=== PATIENT | female | born 1950 ===

== ENCOUNTER 2016-12-22 12:01 | Inpatient (IN) | payer MEDICAID, MEDICARE, OTHER ==
[2016-12-22 12:01] VITALS: BMI 35.4
[2016-12-22] MEDS ORDERED: Albuterol-Ipratrop 3 mg / 0.5 (3 ml) UD INH STA (12:28)
[2016-12-22] MEDS ORDERED: Albuterol-Ipratrop 3 mg / 0.5 (3 ml) UD ONE (12:33)
--- NOTE | 2016-12-22 12:37 | RAD ---
HISTORY: Cough, SOB, CP COMPARISON: No prior. FINDINGS: LUNGS: No active pulmonary disease. PLEURA: No significant pleural effusion identified, no pneumothorax apparent. CARDIOVASCULAR: Prominent cardiac silhouette again seen. No pulmonary vascular derangement appreciable. OSSEOUS STRUCTURES: No significant abnormalities. VISUALIZED UPPER ABDOMEN: Surgical clips again seen the right upper quadrant abdomen. OTHER FINDINGS: None. IMPRESSION: No acute cardiopulmonary is appreciated in the interval. Prominent but stable appearing cardiac silhouette again identified.
[2016-12-22 13:01] LABS: BASO % 0.4 % (0.0-2.0); EOS # 0.1 K/uL (0.0-0.7); EOS % 1.2 % (0.0-4.0); HEMATOCRIT 34.5 % (34.0-47.0); LYMPH # 1.4 K/uL (1.0-4.3); LYMPH % 17.6 % (20.0-40.0); MEAN CELL VOLUME 94.8 fl (81.0-99.0); MEAN CORPUSCULAR HEMOGLOBIN 31.7 pg (27.0-31.0); MEAN CORPUSCULAR HGB CONC 33.4 g/dL (33.0-37.0); MEAN PLATELET VOLUME 8.3 fl (7.2-11.7); MONO # 0.4 K/uL (0.0-0.8); MONO % 4.9 % (0.0-10.0); NEUT # 6.1 K/uL (1.8-7.0); NEUT % 75.9 % (50.0-75.0); NRBC % 0.1 % (0.0-0.0); RED CELL DISTRIBUTION WIDTH 14.4 % (11.5-14.5)
--- NOTE | 2016-12-22 13:05 | ED PDOC ---
HPI: Chest Pain Time Seen by Provider: 12/22/16 12:17 Chief Complaint (Nursing): Chest Pain Chief Complaint (Provider): asthma, chest pain, and cough History Per: Patient History/Exam Limitations: no limitations Onset/Duration Of Symptoms: Days ("a month", asthma. ) Current Symptoms Are (Timing): Still Present Severity: Mild Quality: "Pain" Additional History Per: Patient Additional Complaint(s): 66 y/o female, Hx of asthma and diabetes, c/o asthma "for a month", non- radiating left sided chest pain and cough with clear sputum since this morning. Patient was recently seen by her PMD a few days prior and was given a shot ( does not remember) for her asthma, but with no relief. Denies fever, chills, or abdominal pain. No palpitations, diaphoresis, or light headedness. Past Medical History Reviewed: Historical Data, Nursing Documentation, Vital Signs Vital Signs: Last Vital Signs Temp 96.7 F L 12/25/16 13:00 Pulse 113 H 12/25/16 13:00 Resp 20 12/25/16 13:00 BP 125/74 12/25/16 13:00 Pulse Ox 98 12/25/16 13:00 - Medical History PMH: Asthma, Back Problems, Diabetes, HTN, Hypercholesterolemia Denies: CVA, HIV - Surgical History Surgical History: Cholecystectomy Denies: Pacemaker, - Family History Family History: States: Unknown Family Hx - Immunization History Hx Tetanus Toxoid Vaccination: No Hx Influenza Vaccination: No Hx Pneumococcal Vaccination: No - Home Medications Home Medications: Ambulatory Orders Medication Instructions Recorded Albuterol 0.083% [Albuterol 0.083% 3 ml IH Q6H PRN 12/22/16 Inhal Sharona (2.5 mg/3 ml) UD] Albuterol HFA [Ventolin HFA 90 2 puff IH Q4H PRN 12/22/16 mcg/actuation (8 g)] Insulin Aspart, Recombinant 10 unit SC AC 12/22/16 [Novolog] Insulin Glargine, Recombina 50 unit SC BID 12/22/16 [Lantus] Losartan [Cozaar] 100 mg PO DAILY 12/22/16 MetFORMIN [glucoPHAGE] 1,000 mg PO BID 12/22/16 Montelukast [Singulair] 10 mg PO HS 12/22/16 Omeprazole 20 mg PO DAILY 12/22/16 Oxycodone HCl/Acetaminophen 1 tab PO Q6H PRN 12/22/16 [Percocet 10-325 mg Tablet] Promethazine [Phenergan Syrup] 5 ml PO Q6H PRN 12/22/16 Simvastatin 10 mg PO DAILY 12/22/16 Zolpidem [Ambien] 10 mg PO HS 12/22/16 Lactobacillus Acidophilus [Bacid 1 cap PO BID #14 cap 12/25/16 Acidophilus] Methylprednisolone [Medrol Dose 4 mg PO DAILY #21 mg 12/25/16 Pack (21 tabs)] levoFLOXacin [Levaquin] 500 mg PO DAILY #7 tab 12/25/16 - Allergies Allergies/Adverse Reactions: Allergies Allergy/AdvReac Type Severity Reaction Status Date / Time No Known Allergies Allergy Verified 01/16/16 14:45 Review of Systems ROS Statement: Except As Marked, All Systems Reviewed And Found Negative Constitutional: Negative for: Fever, Chills, Sweats Cardiovascular: Positive for: Chest Pain (left sided). Negative for: Palpitations, Light Headedness Respiratory: Positive for: Cough (with clear sputum), Shortness of Breath ( Asthma) Gastrointestinal: Negative for: Abdominal Pain Physical Exam - Reviewed Nursing Documentation Reviewed: Yes Vital Signs Reviewed: Yes - Physical Exam Appears: Positive for: Well, Non-toxic, No Acute Distress Head Exam: Positive for: ATRAUMATIC, NORMAL INSPECTION, NORMOCEPHALIC Skin: Positive for: Normal Color, Warm, Dry Eye Exam: Positive for: Normal appearance Cardiovascular/Chest: Positive for: Regular Rate, Rhythm Respiratory: Positive for: Normal Breath Sounds, Other (Speaking in full sentences). Negative for: Rales, Rhonchi, Wheezing Gastrointestinal/Abdominal: Positive for: Soft. Negative for: Tenderness Neurologic/Psych: Positive for: Alert, Oriented - Laboratory Results Result Diagrams: 12/22/16 12:30 12/22/16 12:30 - ECG O2 Sat by Pulse Oximetry: 100 (RA/Nebulizer treatment) Pulse Ox Interpretation: Normal Medical Decision Making Medical Decision Making: Initial Impression: * Asthma "for a month", left sided chest pain and cough with sputum since this morning. Initial Plan: * EKG * Blood work up * Duoneb treatment * Chest x-ray * UA Time: 13:00 Asthma vs Chest pain Time: 1235 --CXR FINDINGS: LUNGS: No active pulmonary disease. PLEURA: No significant pleural effusion identified, no pneumothorax apparent. CARDIOVASCULAR: Prominent cardiac silhouette again seen. No pulmonary vascular derangement appreciable. OSSEOUS STRUCTURES: No significant abnormalities. VISUALIZED UPPER ABDOMEN: Surgical clips again seen the right upper quadrant abdomen. OTHER FINDINGS: None. IMPRESSION: No acute cardiopulmonary is appreciated in the interval. Prominent but stable appearing cardiac silhouette again identified. Time: 1543 --CT chest FINDINGS: PULMONARY ARTERIES: Unremarkable. No pulmonary embolism. AORTA: No acute findings. No thoracic aortic aneurysm. LUNGS: Multiple subpleural nodules none larger than 2 mm. PLEURAL SPACES: Unremarkable. No effusion or pneuomothorax. HEART: Unremarkable. No cardiomegaly. No significant pericardial effusion. LYMPH NODES: No lymphadenopathy. BONES, CHEST WALL: Unremarkable. No fracture or destructive lesion OTHER FINDINGS: Unremarkable. IMPRESSION: Unremarkable CT pulmonary angiogram. No pulmonary embolus. Additional benign and/or incidental findings described above. Time: 1600 --Discussed case with Dr. Champion. Agreed with plans for OBS/Tele admission. Scribe Attestation Documented by Natasha yung acting as a scribe for Dottie King MD. Provider Attestation: All medical record entries made by the Scribe were at my direction and personally dictated by me. I have reviewed the chart and agree that the record accurately reflects my personal performance of the history, physical exam, medical decision making, and the department course for this patient. I have also personally directed, reviewed, and agree with the discharge instructions and disposition. Disposition - Clinical Impression Clinical Impression: Chest pain - Disposition Disposition Time: 16:10 Condition: STABLE - Pt Status Changed To: Hospital Disposition Of: Observation - POA Present On Arrival: None
[2016-12-22 13:13] LABS: ALB/GLOB RATIO 1.1 (1.0-2.1); ALKALINE PHOSPHATASE 69 U/L (38-126); ALT/SGPT 37 U/L (9-52); AST/SGOT 20 U/L (14-36); BILIRUBIN,TOTAL 1.7 mg/dl (0.2-1.3); BLOOD UREA NITROGEN 24 mg/dl (7-17); CARBON DIOXIDE 25 mmol/L (22-30); CHLORIDE 109 mmol/L (98-107); GFR AFRICAN-AMERICAN > 60; GLUCOSE,RANDOM 91 mg/dL (65-105); POTASSIUM 3.8 MMOL/L (3.6-5.0); SODIUM 142 mmol/l (132-148); TOTAL PROTEIN 6.5 G/DL (6.3-8.2)
[2016-12-22 13:30] LABS: PARTIAL THROMBOPLASTIN TIME 22.9 Seconds (25.6-37.1)
[2016-12-22] MEDS ORDERED: Sodium Chloride 0.9% 50 ML IV ONE (14:03)
[2016-12-22] MEDS ORDERED: Iodixanol 320 MG/ML 100 ML BOTTLE IV ONE (14:03)
[2016-12-22 15:06] LABS: URINE BACTERIA RARE (<OCC); URINE BILIRUBIN NEGATIVE (NEGATIVE); URINE BLOOD MODERATE (NEGATIVE); URINE COLOR YELLOW (YELLOW); URINE GLUCOSE (UA) NEG (Normal); URINE KETONE NEGATIVE (NEGATIVE); URINE LEUKOCYTE ESTERASE NEG Leu/uL (Negative); URINE PROTEIN NEGATIVE (NEGATIVE); URINE UROBILINOGEN 0.2-1.0 mg/dL (0.2-1.0)
[2016-12-22 15:07] LABS: RBC URINE 18 /hpf (0-3); WBC URINE 3 /hpf (0-5)
--- NOTE | 2016-12-22 15:45 | CT ---
PROCEDURE: CT Chest with contrast (Pulmonary Angiogram) HISTORY: SOB, CP COMPARISON: None available. TECHNIQUE: Axial computed tomography images were obtained of the chest in the pulmonary arterial phase of enhancement. Coronal and sagittal reformatted images were created and reviewed. Maximum intensity projection (MIP) reconstructed images in the following planes: Axial projection only Intravenous contrast dose: 90 cc Visipaque 320 Mean Hounsfield unit values in the main pulmonary artery: 288.38 Radiation dose: Total exam DLP = 4-3.01 mGy-cm. This CT exam was performed using one or more of the following dose reduction techniques: Automated exposure control, adjustment of the mA and/or kV according to patient size, and/or use of iterative reconstruction technique. FINDINGS: PULMONARY ARTERIES: Unremarkable. No pulmonary embolism. AORTA: No acute findings. No thoracic aortic aneurysm. LUNGS: Multiple subpleural nodules none larger than 2 mm. PLEURAL SPACES: Unremarkable. No effusion or pneuomothorax. HEART: Unremarkable. No cardiomegaly. No significant pericardial effusion. LYMPH NODES: No lymphadenopathy. BONES, CHEST WALL: Unremarkable. No fracture or destructive lesion OTHER FINDINGS: Unremarkable. IMPRESSION: Unremarkable CT pulmonary angiogram. No pulmonary embolus. Additional benign and/or incidental findings described above.
[2016-12-22] MEDS ORDERED: Patient's Own Med (Oxycodone Hcl/Acetaminophen [Percocet 10-325 Mg Tablet] 1 TAB) PO PRN (19:56)
[2016-12-22] MEDS: Insulin Detemir 100 Units/ml Inj SC SCH (21:44)
[2016-12-22] MEDS: Promethazine 6.25 MG/5 ML CUP PO PRN (21:45)
[2016-12-23] MEDS: Insulin Lispro (humaLOG) 100 Units/ml Inj SC SCH ×7 (07:13→21:18)
[2016-12-23] MEDS ORDERED: INSULIN ASPART RECOMBINANT 10 UNIT SC SCH (07:30)
[2016-12-23] MEDS: Insulin Detemir 100 Units/ml Inj SC SCH ×2 (08:14→21:18)
--- NOTE | 2016-12-23 08:40 | CARD ---
APPROVED REPORT EKG Measurement Heart [id number] MD [id number] <Conclusion> Normal sinus rhythm Normal ECG
[2016-12-23] MEDS ORDERED: Oxycodone/Acetaminophen 5/325 mg Tab PO PRN (08:50)
[2016-12-23] MEDS: Pantoprazole 20 mg EC Tab PO SCH (09:05)
[2016-12-23] MEDS: Pravastatin Sodium 20 MG TAB PO SCH (10:06)
[2016-12-23] MEDS: Enoxaparin 40 mg Syringe SC SCH (10:30)
[2016-12-23] MEDS: Promethazine 6.25 MG/5 ML CUP PO PRN ×2 (16:24→22:46)
[2016-12-23] MEDS: Albuterol HFA 90 mcg/actuation (8 g) IH PRN ×2 (16:26→21:16)
[2016-12-23] MEDS: Albuterol 0.083% Inhal Sol (2.5 mg/3 mL) UD IH PRN (16:48)
--- NOTE | 2016-12-23 22:19 | CON ---
DATE: CARDIOLOGY CONSULT REASON FOR CONSULTATION: Chest pain. HISTORY OF PRESENT ILLNESS: The patient is 66 years old female who has a history of bronchial asthma, diabetes mellitus, presented because of chest pain, left-sided, associated with productive cough of clear sputum. The patient is unaware of any history of heart attack in the past. The patient stated she underwent stress test 2 months ago at [facility] and was negative; however, the available record to me is a negative stress test that was done in 08/2014. A more recent Myoview stress test in August of this year performed by Dr. Millan revealed no stress-induced perfusion defect and normal DEXA scan with normal ejection fraction. SOCIAL HISTORY: Nonsmoker, nondrinker. MEDICATIONS: Albuterol inhaler, Ambien 10 mg at bedtime, Cozaar 100 mg once a day, aspirin 81 mg once a day, metformin 1 g twice a day, Levemir 15 units subcutaneous twice a day, Lovenox 40 mg subcutaneous once a day, Pravachol 20 mg once a day, prednisone 10 mg once a day, Protonix 20 mg once a day, Singulair 10 mg at bedtime. REVIEW OF SYSTEMS: No nausea or vomiting. No fever or chills. No hemoptysis. No syncope. PHYSICAL EXAMINATION: GENERAL: The patient is an elderly female, who does not appear to be in any distress. VITAL SIGNS: Blood pressure 124/73, heart rate 67, temperature 97.9, respirations 18. HEENT: Normocephalic. NECK: No JVD. CHEST: Minimal rhonchi. HEART: S1 and S2, regular. ABDOMEN: Soft. EXTREMITIES: No edema. LABORATORY DATA: Hemoglobin and hematocrit 11.5 and 34.5, white count and platelet count are within normal limit. SMA-7: Sodium 142, potassium 3.8, chloride 109, CO2 of 25, glucose 91, BUN 24, creatinine 0.9. Two sets of troponin are negative. PTT 22.9. D-dimer is elevated 352. EKG revealed normal sinus rhythm. Chest CT angio unremarkable. No pulmonary embolism. ASSESSMENT: 1. Atypical chest pain, myocardial infarction is ruled out. 2. History of recent negative DEXA scan in August of this year. 3. Diabetes mellitus. 4. Chronic obstructive lung disease. CONDITIONS: Continue current bronchodilators, continue Cozaar 10 mg once a day, aspirin 81 mg once a day, Lovenox 40 mg subcutaneous once a day, prednisone 10 mg once a day, Pravachol 20 mg daily. Followup echo cardiac study performed today, which is unremarkable. The patient can be discharged to be followed by her chha Dr. Millan. Audie Broussard MD
--- NOTE | 2016-12-24 04:14 | HP ---
HISTORY OF PRESENT ILLNESS: The patient is a 66-year-old female with history of multiple medical problems, presented to emergency room with chest pain at rest. Pain was pressure like, retrosternal. The patient was evaluated in the emergency room and after cardiology consultation with Dr. Broussard, the patient was admitted for further management. The patient denied to have similar chest pain before. The patient's symptoms were not associated with any shortness of breath, palpitations, or any other cardiac symptoms. REVIEW OF SYSTEMS: Other review of systems is negative. ALLERGIES: NO KNOWN ALLERGIES. HOME MEDICATIONS: NovoLog 10 units once a day, DuoNeb by nebulizer every 6 hours as needed, prednisone 10 mg daily, simvastatin 10 mg daily, Singulair 10 mg daily, Ambien 10 mg daily, omeprazole 20 mg daily, metformin 1000 mg twice a day, and losartan 100 mg daily. PAST MEDICAL HISTORY: Hypertension, type 2 diabetes mellitus, hypercholesterolemia, obstructive lung disease, on steroids, and nebulizer treatment. SOCIAL HISTORY: No history of smoking, ETOH, or substance abuse. FAMILY HISTORY: Noncontributory. PHYSICAL EXAMINATION: GENERAL: The patient is in bed, comfortable, not in any cardiopulmonary distress at the time of this examination. VITAL SIGNS: Blood pressure 110/70, temperature 98.1, respiratory rate 14, and pulse 74. HEENT: Pupils equal and reactive to light. Normal-appearing mucosa of the conjunctivae, oropharynx, and nasal membrane mucosa. NECK: Supple. No JVD. No carotid bruits. No lymph node. No thyromegaly. CHEST AND LUNGS: Bilaterally symmetrical expansion. Good air exchange. No rales. No rhonchi. CARDIOVASCULAR: PMI not localized. S1 and S2. No additional sounds. ABDOMEN: Normoactive bowel sounds. No tenderness. No organomegaly. No masses. EXTREMITIES: No cyanosis. No clubbing. No edema. CENTRAL NERVOUS SYSTEM: Alert, awake, and oriented x3. No neurological deficits could be appreciated. ASSESSMENT: 1. Chest pain, rule out acute coronary syndrome. 2. Obstructive lung disease. 3. Hypertension. 4. Type 2 diabetes mellitus. PLAN: Cardiac enzymes every 8 hours x3. Cardiology consult and follow recommendations, echocardiogram, continue aspirin and statin. Resume the patient's home medications. [facility] MD Akira [facility] # [id number]
[2016-12-24] MEDS: Albuterol 0.083% Inhal Sol (2.5 mg/3 mL) UD IH PRN (04:59)
[2016-12-24] MEDS: Insulin Lispro (humaLOG) 100 Units/ml Inj SC SCH ×7 (06:35→21:39)
--- NOTE | 2016-12-24 09:08 | CARD ---
APPROVED REPORT EXAM: Two-dimensional and M-mode echocardiogram with Doppler and color Doppler. Other Information Quality : GoodRhythm : NSR INDICATION Chest Pain 2D DIMENSIONS IVSd1.07 (0.7-1.1cm)LVDd3.96 (3.9-5.9cm) LVOT Diameter1.78 (1.8-2.4cm)PWd0.95 (0.7-1.1cm) IVSs1.37 (0.8-1.2cm)LVDs2.78 (2.5-4.0cm) FS (%) 29.8 %PWs1.44 (0.8-1.2cm) M-Mode DIMENSIONS Left Atrium (MM)3.68 (2.5-4.0cm)IVSd1.47 (0.7-1.1cm) Aortic Root3.21 (2.2-3.7cm)LVDd4.44 (4.0-5.6cm) Aortic Cusp Exc.1.76 (1.5-2.0cm)PWd1.06 (0.7-1.1cm) IVSs1.47 cmFS (%) 30 % LVDs3.12 (2.0-3.8cm)PWs1.41 cm Mitral Valve MV E Gleiwvot34.6cm/sMV DECEL [id number] A Mzvbjrey90.5cm/s MV CJE46nuQ/A ratio0.8MVA (PHT)4.02cm2 TDI Lateral E' Peak V8.23cm/sMedial E' Peak V5.87cm/sE/Lateral E'5.5 E/Medial E'7.8 Pulmonary Valve PV Peak Kxihkxco30.1cm/s Tricuspid Valve TR Peak Fgpbsfsm588zt/sRAP [id number] Peak Gr.17mmHg [id number] LEFT VENTRICLE The left ventricle is normal size. There is normal left ventricular wall thickness. Left ventricle systolic function is normal. The Ejection Fraction is 60-65%. There is normal LV segmental wall motion. Transmitral Doppler flow pattern is Grade I-abnormal relaxation pattern. RIGHT VENTRICLE The right ventricle is normal size. There is normal right ventricular wall thickness. The right ventricular systolic function is normal. ATRIA The left atrium size is normal. The right atrium size is normal. AORTIC VALVE The aortic valve is normal in structure. There is trace aortic regurgitation. There is no aortic valvular stenosis. MITRAL VALVE The mitral valve is normal in structure. There is no evidence of mitral valve prolapse. There is no mitral valve stenosis. Mitral regurgitation is trace. TRICUSPID VALVE The tricuspid valve is normal in structure. There is trace tricuspid regurgitation. Right ventricular systolic pressure is estimated at 27 mmHg. There is no pulmonary hypertension. PULMONIC VALVE The pulmonary valve is normal in structure and function. There is no pulmonic valvular regurgitation. GREAT VESSELS The aortic root is normal in size. The IVC is normal in size and collapses >50% with inspiration. PERICARDIAL EFFUSION The pericardium appears normal. <Conclusion> The left ventricle is normal size. There is normal left ventricular wall thickness. There is normal LV segmental wall motion. Left ventricle systolic function is normal. The Ejection Fraction is 60-65%. Transmitral Doppler flow pattern is Grade I-abnormal relaxation pattern.
[2016-12-24] MEDS: Insulin Detemir 100 Units/ml Inj SC SCH ×2 (09:42→21:38)
[2016-12-24] MEDS: Enoxaparin 40 mg Syringe SC SCH (09:43)
[2016-12-24] MEDS: Promethazine 6.25 MG/5 ML CUP PO PRN ×3 (09:44→23:05)
[2016-12-24] MEDS: Pravastatin Sodium 20 MG TAB PO SCH (09:47)
[2016-12-24] MEDS: Pantoprazole 20 mg EC Tab PO SCH (09:47)
[2016-12-24] MEDS: levoFLOXacin 500 mg in D5W 500 MG/100 ML BAG IVPB SCH (14:00)
[2016-12-24] MEDS: methylPREDNISolone 40 MG in Sodium Chloride 0.9% 50 ML IV SCH ×2 (15:34→17:56)
[2016-12-24] MEDS: Albuterol 0.083% Inhal Sol (2.5 mg/3 mL) UD IH SCH ×3 (15:36→23:55)
--- NOTE | 2016-12-24 17:06 | PN ---
DATE: SUBJECTIVE: The patient is mildly short of breath and wheezing. She denies any chest pain. PHYSICAL EXAMINATION: VITAL SIGNS: Blood pressure 102/61, heart rate 81, temperature 97.9, respirations 18. HEENT: Normocephalic. CHEST: Bilateral scattered wheezing. HEART: S1 and S2, regular. EXTREMITIES: No edema. LABORATORY DATA: Today's blood sugar [address] angio, no pulmonary embolism. Echocardiographic study revealed normal left ventricular size, wall thickness, segmental wall motion, ejection fraction with grade 1 abnormal relaxation pattern. ASSESSMENT: 1. Atypical chest pain, myocardial infarction is ruled out. The patient has negative Lexiscan in August of this year. 2. Bronchospasm. RECOMMENDATIONS: Continue current albuterol inhaler. Continue Cozaar 10 mg once a day, aspirin 81 mg once a day and Levaquin at 500 mg intravenously daily. Continue subcutaneous Lovenox at 40 mg once a day. Case was discussed with Dr. Champion. No further cardiac workup is indicated. Audie Broussard MD
--- NOTE | 2016-12-24 19:00 | PN ---
DATE: 12/24/2016 SUBJECTIVE: The patient is seen today, 12/24/2016. She is in mild respiratory distress with wheezing. PHYSICAL EXAMINATION: VITAL SIGNS: Blood pressure is 100/66, temperature 98.3, respiratory rate 18, and pulse 73. HEENT: Pupils equal, reactive to light. Normal-appearing mucosa of the conjunctivae, oropharynx and nasal membrane mucosa. NECK: Supple. No JVD. No carotid bruit. No lymph node. No thyromegaly. CHEST AND LUNGS: Bilateral symmetrical expansion. Bilateral rhonchi scattered all over lung cruz. CARDIOVASCULAR SYSTEM: PMI not localized. S1 and S2. No additional sounds. ABDOMEN: Normoactive bowel sounds. No tenderness. No organomegaly. No masses. EXTREMITIES: No cyanosis. No clubbing. No edema. MEDICAL COORDINATOR PESTICIDE USE: Alert, awake, and oriented x3. No neurological deficit could be appreciated. ASSESSMENT: 1. Exacerbation of bronchial asthma. 2. Chest pain, likely musculoskeletal. 3. Hypertension. 4. Type II diabetes mellitus. 5. Hypercholesteremia. PLAN: We will start the patient on Levaquin as well as Solu-Medrol and DuoNeb by nebulizer every 6 hours. Continue Accu-Cheks and the patient is cleared from cardiac point of view by Dr. Broussard. Jesus MD Akira
[2016-12-25] MEDS: methylPREDNISolone 40 MG in Sodium Chloride 0.9% 50 ML IV SCH ×2 (00:25→09:15)
[2016-12-25] MEDS: Albuterol 0.083% Inhal Sol (2.5 mg/3 mL) UD IH SCH ×3 (04:03→11:31)
[2016-12-25] MEDS: Insulin Lispro (humaLOG) 100 Units/ml Inj SC SCH ×4 (06:55→11:58)
[2016-12-25 08:27] VITALS: RESP 20
[2016-12-25] MEDS: Enoxaparin 40 mg Syringe SC SCH (09:10)
[2016-12-25] MEDS: levoFLOXacin 500 mg in D5W 500 MG/100 ML BAG IVPB SCH (09:12)
[2016-12-25] MEDS: Pantoprazole 20 mg EC Tab PO SCH (09:14)
[2016-12-25] MEDS: Pravastatin Sodium 20 MG TAB PO SCH (09:14)
[2016-12-25] MEDS: Promethazine 6.25 MG/5 ML CUP PO PRN (09:14)
[2016-12-25] MEDS: Insulin Detemir 100 Units/ml Inj SC SCH (09:25)
[2016-12-25 12:25] VITALS: BP 125/74; PULSE 113; TEMP 96.7
--- NOTE | 2016-12-25 14:41 | PN ---
DATE: SUBJECTIVE: The patient's shortness of breath and wheezing has improved. PHYSICAL EXAMINATION VITAL SIGNS: Blood pressure of 125/74, heart rate of 115, temperature of 96.7, and respirations of 20. HEENT: Normocephalic. HEART: S1 and S2 regular. CHEST: Bilateral rhonchi. ABDOMEN: Soft. EXTREMITIES: No edema. LABORATORY DATA: Today's blood sugar of 273 and 267 respectively. ASSESSMENT: 1. Atypical chest pain, myocardial infarction is ruled out. 2. Chronic obstructive lung disease. 3. Uncontrolled diabetes mellitus. 4. Hypertension. CONDITION: Case was discussed with Dr. Champion and with UROLOGIC NURSE. Continue current IV Levaquin and IV Solu-Medrol. Continue Glucophage, Levemir, subcutaneous Lovenox, Pravachol, oral Protonix and Singulair. Discontinue aspirin. The patient can be discharged to be followed up by her primary new order clerk, Dr. Millan at his [place] office. Audie Broussard MD
[2016-12-25 15:58] VITALS: O2SAT 100
--- NOTE | 2016-12-26 06:40 | DS ---
REASON FOR ADMISSION: This is a 66-year-old female with history of multiple medical problems was admitted for chest tightness and wheezing. COURSE OF HOSPITALIZATION: The patient was admitted to telemetry floor and due to chest pressure, the patient had the cardiac workup done and consultation by Dr. Broussard. The patient's echocardiogram was normal and myocardial infarction was ruled out by negative cardiac enzymes. The patient was started also on IV steroid as well as nebulizer treatment for exacerbation of underlying bronchial asthma. The patient responded to treatment well and she was discharged with Medrol Dosepak as well as Levaquin 500 mg for another week and to continue her inhaled steroids as well as DuoNeb by nebulizer at home and follow with her primary care physician, Dr. Farrukh Rios. FINAL DIAGNOSES: 1. Chest pain, myocardial infarction is ruled out. 2. Exacerbation of bronchial asthma. 3. Hypertension. 4. Type 2 diabetes mellitus. [facility] MD Akira
== END 2016-12-25 14:16 | disposition home or self-care (01) | DRG 313 ==
LOC: H.ER 12:01 → H.ERHOLD 16:10 → H.TEL 18:15 → OBSVTOIN 12-23 17:39
PROVIDERS: ADMIT Internal Medicine; ATTEND Internal Medicine
DX: R07.89 Other chest pain (principal); J45.901 Unspecified asthma with (acute) exacerbation; J44.9 Chronic obstructive pulmonary disease, unspecified; E11.65 Type 2 diabetes mellitus with hyperglycemia; I10 Essential (primary) hypertension; E78.00 Pure hypercholesterolemia, unspecified

== ENCOUNTER 2017-12-23 18:29 | Inpatient (IN) | payer MEDICAID, MEDICARE, OTHER ==
[2017-12-23 18:29] VITALS: BMI 35.4
[2017-12-23 20:29] LABS: BASO # 0.1 K/uL (0.0-0.2); EOS # 0.1 K/uL (0.0-0.7); HEMOGLOBIN 12.2 g/dL (12.0-16.0); LYMPH # 4.1 K/uL (1.0-4.3); LYMPH % 33.7 % (20.0-40.0); MEAN CELL VOLUME 93.4 fl (81.0-99.0); MEAN CORPUSCULAR HEMOGLOBIN 31.5 pg (27.0-31.0); MEAN CORPUSCULAR HGB CONC 33.8 g/dL (33.0-37.0); MEAN PLATELET VOLUME 9.3 fl (7.2-11.7); MONO # 0.7 K/uL (0.0-0.8); NEUT # 7.1 K/uL (1.8-7.0); NEUT % 58.3 % (50.0-75.0); RBC 3.86 Mil/uL (3.80-5.20); RED CELL DISTRIBUTION WIDTH 15.2 % (11.5-14.5); WHITE BLOOD COUNT 12.2 K/uL (4.8-10.8)
[2017-12-23 20:39] LABS: ALB/GLOB RATIO 1.2 (1.0-2.1); ALBUMIN 3.9 g/dL (3.5-5.0); ALT/SGPT 30 U/L (9-52); AST/SGOT 22 U/L (14-36); BLOOD UREA NITROGEN 37 mg/dl (7-17); CALCIUM 9.5 mg/dL (8.4-10.2); GFR NON-AFRICAN AMERICAN 49; LIPASE 63 U/L (23-300)
--- NOTE | 2017-12-23 21:17 | ED PDOC ---
HPI: Abdomen Time Seen by Provider: 12/23/17 20:03 Chief Complaint (Nursing): Abdominal Pain Chief Complaint (Provider): Abdominal pain History Per: Patient History/Exam Limitations: no limitations Onset/Duration Of Symptoms: Hrs (1) Outside of [place] travel?: No Current Symptoms Are (Timing): Still Present Location Of Pain/Discomfort: Epigastric Quality Of Discomfort: Dull, Burning, "Pain" Additional History Per: Patient Additional Complaint(s): 67yo female, history of chronic back and hip pain, comes to ER with complaints of epigastric pain x 1 hr prior to arrival. Patient states she took her percocet for her chronic pain and afterwards, felt the burning epigastric pain. She states the pain radiates to her chest and describes it as a dull sensation. She reports associated nausea but deneis any vomiting, diarrhea, shortness of breath, dizziness, headache or rectal bleeding. She offers no additional medical complaints. PMD: Dr. Aleman Past Medical History Reviewed: Historical Data, Nursing Documentation, Vital Signs Vital Signs: Last Vital Signs Temp 98.4 F 12/25/17 16:09 Pulse 69 12/25/17 16:09 Resp 18 12/25/17 16:09 BP 119/82 12/25/17 16:09 Pulse Ox 97 12/25/17 16:09 - Medical History PMH: Asthma, Back Problems, Diabetes, HTN, Hypercholesterolemia Denies: CVA, HIV, Chronic Kidney Disease - Surgical History Surgical History: Cholecystectomy Denies: Pacemaker, - Family History Family History: States: No Known Family Hx - Immunization History Hx Tetanus Toxoid Vaccination: No Hx Influenza Vaccination: No Hx Pneumococcal Vaccination: No - Home Medications Home Medications: Ambulatory Orders Medication Instructions Recorded Albuterol 0.083% [Albuterol 0.083% 3 ml IH Q6H PRN 12/22/16 Inhal Sharona (2.5 mg/3 ml) UD] Albuterol HFA [Ventolin HFA 90 2 puff IH Q4H PRN 12/22/16 mcg/actuation (8 g)] Insulin Aspart, Recombinant 10 unit SC AC 12/22/16 [Novolog] Insulin Glargine, Recombina 50 unit SC BID 12/22/16 [Lantus] Losartan [Cozaar] 100 mg PO DAILY 12/22/16 MetFORMIN [glucoPHAGE] 1,000 mg PO BID 12/22/16 Montelukast [Singulair] 10 mg PO HS 12/22/16 Omeprazole 20 mg PO DAILY 12/22/16 Oxycodone HCl/Acetaminophen 1 tab PO Q6H PRN 12/22/16 [Percocet 10-325 mg Tablet] Simvastatin 10 mg PO DAILY 12/22/16 Zolpidem [Ambien] 10 mg PO HS 12/22/16 Lactobacillus Acidophilus [Bacid 1 cap PO BID #14 cap 12/25/16 Acidophilus] - Allergies Allergies/Adverse Reactions: Allergies Allergy/AdvReac Type Severity Reaction Status Date / Time No Known Allergies Allergy Verified 10/23/17 10:02 Review of Systems ROS Statement: Except As Marked, All Systems Reviewed And Found Negative Constitutional: Negative for: Fever, Chills Cardiovascular: Negative for: Chest Pain Respiratory: Negative for: Cough, Shortness of Breath Gastrointestinal: Positive for: Nausea, Abdominal Pain. Negative for: Vomiting Musculoskeletal: Positive for: Back Pain Neurological: Negative for: Weakness, Numbness Physical Exam - Reviewed Nursing Documentation Reviewed: Yes Vital Signs Reviewed: Yes - Physical Exam Appears: Positive for: Non-toxic, No Acute Distress, Uncomfortable Head Exam: Positive for: ATRAUMATIC, NORMAL INSPECTION, NORMOCEPHALIC Skin: Positive for: Normal Color, Warm, DRY Eye Exam: Positive for: EOMI, Normal appearance, PERRL Neck: Positive for: Normal, Painless ROM, Supple Cardiovascular/Chest: Positive for: Regular Rate, Rhythm Respiratory: Positive for: CNT, Normal Breath Sounds Pulses-Radial (L): 2+ Pulses-Radial (R): 2+ Gastrointestinal/Abdominal: Positive for: Soft, Tenderness (epigastric). Negative for: Mass, Distended, Guarding, Rebound, Hernia Back: Positive for: Normal Inspection. Negative for: L CVA Tenderness, R CVA Tenderness, Vertebral Tenderness Extremity: Positive for: Normal ROM. Negative for: Pedal Edema, Deformity Neurologic/Psych: Positive for: Alert, Oriented. Negative for: Motor/Sensory Deficits - Laboratory Results Result Diagrams: 12/24/17 08:54 12/24/17 08:54 - ECG O2 Sat by Pulse Oximetry: 98 (RA) Pulse Ox Interpretation: Normal Medical Decision Making Medical Decision Making: Impression: Abdominal pain Differential: Gastritis, pancreatitis, less likely biliary disease, ACS Plan: * Labs * KUB * CT Abdomen/Pelvis * Morphine 4mg IVP * Pepcid 20mg IVP * Zofran 4mg IVP 23:36 Abdomen/Pelvis CT FINDINGS: Lower thorax: No acute findings. ABDOMEN: Liver: There is a diffuse decrease in hepatic parenchymal density, consistent with fatty infiltration. Gallbladder and bile ducts: There has been a cholecystectomy. There is a mild, expected degree of intrahepatic and common bile duct dilation. Pancreas: The body and tail are atrophic. The pancreatic head and uncinate process are somewhat prominent with minimal haziness of the adjacent fat. Spleen: Normal. No splenomegaly. Adrenals: Normal. No mass. Kidneys and ureters: There are multiple simple renal cysts. Stomach and bowel: Normal. No obstruction. No mucosal thickening. Appendix: No evidence of appendicitis. PELVIS: Bladder: Unremarkable as visualized. Reproductive: Unremarkable as visualized. ABDOMEN and PELVIS: Intraperitoneal space: Normal. No free air. No significant fluid collection. Bones/joints: No acute fracture. No dislocation. Soft tissues: Unremarkable. Vasculature: Normal. No abdominal aortic aneurysm. Lymph nodes: Normal. No enlarged lymph nodes. IMPRESSION: Cholecystectomy with expected mild biliary ductal dilatation. Somewhat prominent pancreatic head and uncinate process with minimal haziness of the adjacent fat. Recommend correlation with amylase and lipase levels 23:45 -Discussed case with Dr. Champion and will admit patient due to concern for CT abdomen findings. Consult with Dr. Torres GI. Scribe Attestation: Documented by Doris Borges, acting as a scribe for Hany Almonte MD. Provider Scribe Attestation: All medical record entries made by the Scribe were at my direction and personally dictated by me. I have reviewed the chart and agree that the record accurately reflects my personal performance of the history, physical exam, medical decision making, and the department course for this patient. I have also personally directed, reviewed, and agree with the discharge instructions and disposition. Disposition - Clinical Impression Clinical Impression: Abdominal pain, Pancreatic abnormality - Patient ED Disposition Is Patient to be Admitted: Yes Discussed With : Lillie Champion Doctor Will See Patient In The: Hospital Counseled Patient/Family Regarding: Studies Performed, Diagnosis - Disposition Disposition Time: 23:50 Condition: FAIR - Pt Status Changed To: Hospital Disposition Of: Inpatient - Admit Certification Admit to Inpatient:: After my assessment, the patient will require hospitalization for at least two midnights. This is because of the severity of symptoms shown, intensity of services needed, and/or the medical risk in this patient being treated as an outpatient. - POA Present On Arrival: None
[2017-12-23] MEDS ORDERED: Morphine 4 MG/ML VIAL IVP ONE (21:19)
[2017-12-23] MEDS ORDERED: Morphine 4 MG/ML VIAL ONE ×2 (21:23→23:51)
[2017-12-23] MEDS ORDERED: Sodium Chloride 0.9% 50 ML IV ONE (22:39)
[2017-12-23] MEDS ORDERED: Iohexol 300 100 ML IJ ONE (22:39)
[2017-12-23] MEDS ORDERED: Iodixanol 320 MG/ML 100 ML BOTTLE IV ONE (22:44)
[2017-12-23] MEDS ORDERED: Sodium Chloride 0.9% 1,000 ML IV STA ×2 (23:43→23:44)
[2017-12-24] MEDS ORDERED: Albuterol HFA 90 mcg/actuation (8 g) IH PRN (06:45)
[2017-12-24] MEDS: Insulin Lispro (humaLOG) 100 Units/ml Inj SC SCH ×4 (07:25→21:46)
[2017-12-24] MEDS ORDERED: Dextrose 50% SYRINGE Inj (50 ml) ONE ×2 (07:29→14:12)
[2017-12-24] MEDS ORDERED: Dextrose 50% SYRINGE Inj (50 ml) IVP STA ×2 (07:30→14:18)
[2017-12-24] MEDS ORDERED: INSULIN ASPART RECOMBINANT 10 UNIT SC SCH (07:30)
[2017-12-24] MEDS: Lactated Ringer's 1,000 ML IV SCH ×3 (08:00→20:20)
[2017-12-24] MEDS ORDERED: Pneumococcal 23-Valent Vaccine IM ONE (08:16)
--- NOTE | 2017-12-24 08:39 | RAD ---
Date of service: 12/23/2017 HISTORY: abdominal pain COMPARISON: No prior. FINDINGS: BOWEL: Surgical clips in the right upper quadrant abdomen potentially from prior cholecystectomy. Clinically correlate. There is a nonobstructive bowel gas pattern identified. Moderate retained fecal material scattered at the right hemicolon and is [id number] at the rectum. No large free intrarenal gas collection. Abdomen obstructive series is more sensitive for small volumes of free air. No suspicious intra-abdominal calcifications identified. BONES: Normal. OTHER FINDINGS: None. IMPRESSION: Nonobstructive bowel gas pattern apparent. Postcholecystectomy changes may be present at the right upper quadrant. Clinically correlate.
[2017-12-24] MEDS: Pantoprazole 40 mg EC Tab PO SCH (08:41)
[2017-12-24] MEDS: Lactobacillus Acidophilus 500 MU Cap PO SCH ×2 (08:41→17:33)
--- NOTE | 2017-12-24 08:45 | CP.PCM.CON ---
<Keyon Gallardo - Last Filed: 12/24/17 13:08> History of Present Illness - History of Present Illness History of Present Illness: PGY-4 GI Fellow Consult Note Mrs. Boyle is a 67 yo Hisp Female with h/o DM2, HTN, COPD, chronic pain and s/ p cholecystectomy presenting with abdominal pain. She states yesterday afternoon, shortly after eating a slice of pizza, she had abrupt onset, dull, 10 /10 epigastic pain. States pain seemed like it would radiate up into her chest and was associated with nausea but did not vomit. States tried taking home percocet with minimal relief; cannot identify any other precipitating or alleviating factors. States this is the first time she has had these symptoms. Denies any EtOH use, fevers, weight loss, dysphagia, hematemesis, melena nor hematochezia. She thinks she had some kind of EGD or CSPY (pt not sure) many years ago that was reportedly normal. 12 point ROS negative other than stated above MHx: See above SurgHx: CCx, MSK surgeries Meds: Reviewed in MAR/chart FamHx: Father had EtOH cirrhosis SocHx: Denied x3 All: NKDA Past Patient History - Tetanus Immunizations Tetanus Immunization: Unknown - Past Medical History & Family History Past Medical History?: Yes - Past Social History Smoking Status: Never Smoked - CARDIAC Hx Cardiac Disorders: Yes Hx Hypercholesterolemia: Yes Hx Hypertension: Yes - PULMONARY Hx Respiratory Disorders: Yes Hx Asthma: Yes - NEUROLOGICAL Hx Neurological Disorder: No Hx Paralysis: No - HEENT Hx HEENT Problems: No - RENAL Hx Chronic Kidney Disease: No - ENDOCRINE/METABOLIC Hx Endocrine Disorders: Yes Hx Diabetes Mellitus Type 1: Yes - HEMATOLOGICAL/ONCOLOGICAL Hx AIDS: No Hx Human Immunodeficiency Virus (HIV): No - INTEGUMENTARY Hx Dermatological Problems: No - MUSCULOSKELETAL/RHEUMATOLOGICAL Hx Falls: No - GASTROINTESTINAL Hx Gastrointestinal Disorders: No - GENITOURINARY/GYNECOLOGICAL Hx Genitourinary Disorders: No - PSYCHIATRIC Hx Psychophysiologic Disorder: No Hx Substance Use: No - SURGICAL HISTORY Hx Cholecystectomy: Yes - ANESTHESIA Hx Anesthesia: Yes Hx Anesthesia Reactions: No Hx Malignant Hyperthermia: No Meds Allergies/Adverse Reactions: Allergies Allergy/AdvReac Type Severity Reaction Status Date / Time No Known Allergies Allergy Verified 10/23/17 10:02 - Medications Medications: Current Medications Albuterol (Ventolin Hfa 90 Mcg/Actuation (8 G)) 2 puff IH Q4H PRN PRN Reason: Shortness of Breath Albuterol Sulfate (Albuterol 0.083% Inhal Sharona (2.5 Mg/3 Ml) Ud) 2.5 mg IH Q6H PRN PRN Reason: Shortness of Breath Dextrose (Dextrose 50% Inj) 50 ml IVP ONCE STA Stop: 12/24/17 07:31 Lactated Ringer's (Lactated Ringer's) 1,000 mls @ 150 mls/hr IV .Q6H40M [facility] Insulin Detemir (Levemir) 50 units SC BID [facility] Insulin Human Lispro (Humalog) 0 units SC ACHS [facility] PRN Reason: Protocol Last Admin: 12/24/17 07:25 Dose: Not Given Lactobacillus Acidophilus (Bacid Acidophilus) 1 cap PO BID [facility] Losartan Potassium (Cozaar) 100 mg PO DAILY [facility] Montelukast Sodium (Singulair) 10 mg PO HS [facility] Morphine Sulfate (Morphine) 2 mg IVP Q4 PRN PRN Reason: Pain, severe (8-10) Pantoprazole Sodium (Protonix Ec Tab) 40 mg PO DAILY [facility] Pneumococcal Polyvalent Vaccine (Pneumovax 23 Vaccine) 0.5 ml IM .ONCE ONE Stop: 12/24/17 08:17 Zolpidem Tartrate (Ambien) 5 mg PO HS [facility] Physical Exam - Constitutional Appears: Well, Non-toxic, No Acute Distress - Head Exam Head Exam: ATRAUMATIC, NORMAL INSPECTION - Eye Exam Eye Exam: EOMI. absent: Conjunctival injection, Scleral icterus - ENT Exam ENT Exam: Mucous Membranes Dry. absent: Mucous Membranes Moist, Normal External Ear Exam - Respiratory Exam Respiratory Exam: Clear to Auscultation Bilateral, NORMAL BREATHING PATTERN. absent: Accessory Muscle Use, Wheezes - Cardiovascular Exam Cardiovascular Exam: REGULAR RHYTHM, RRR - GI/Abdominal Exam GI & Abdominal Exam: Normal Bowel Sounds, Soft, Tenderness (mildly in epigastrum w/o guarding). absent: Bruit, Diminished Bowel Sounds, Distended, Firm, Guarding, Hernia, Hyperactive Bowel Sounds, Hypoactive Bowel Sounds, Mass , Organomegaly, Pulsatile Mass, Rebound, Rigid - Rectal Exam Rectal Exam: Deferred - Extremities Exam Extremities exam: Positive for: normal inspection. Negative for: pedal edema - Neurological Exam Neurological exam: Alert, CN II-XII Intact, Oriented x3 - Psychiatric Exam Psychiatric exam: Normal Affect, Normal Mood - Skin Skin Exam: Dry, Normal Color, Warm Results - Vital Signs Recent Vital Signs: Last Vital Signs Temp 97.9 F 12/24/17 08:09 Pulse 59 L 12/24/17 08:09 Resp 19 12/24/17 08:09 BP 119/71 12/24/17 08:09 Pulse Ox 97 12/24/17 08:09 - Labs Result Diagrams: 12/24/17 08:54 12/24/17 08:54 Labs: Laboratory Results - last 24 hr 12/23/17 12/23/17 12/24/17 20:20 20:20 01:36 WBC 12.2 H D RBC 3.86 Hgb 12.2 Hct 36.1 MCV 93.4 MCH 31.5 H MCHC 33.8 RDW 15.2 H Plt Count 200 MPV 9.3 Neut % (Auto) 58.3 Lymph % (Auto) 33.7 [place] % (Auto) 6.0 Eos % (Auto) 1.0 Baso % (Auto) 1.0 Neut # (Auto) 7.1 H Lymph # (Auto) 4.1 [place] # (Auto) 0.7 Eos # (Auto) 0.1 Baso # (Auto) 0.1 Sodium 142 Potassium 3.6 Chloride 109 H Carbon Dioxide 21 L Anion Gap 16 BUN 37 H Creatinine 1.1 Est GFR ( Amer) 60 Est GFR (Non-Af Amer) 49 POC Glucose (mg/dL) 94 Random Glucose 145 H Calcium 9.5 Total Bilirubin 1.4 H AST 22 ALT 30 Alkaline Phosphatase 61 Troponin I < 0.0120 Total Protein 7.1 Albumin 3.9 Globulin 3.2 Albumin/Globulin Ratio 1.2 Lipase 63 12/24/17 12/24/17 07:26 08:33 WBC RBC Hgb Hct MCV MCH MCHC RDW Plt Count MPV Neut % (Auto) Lymph % (Auto) [place] % (Auto) Eos % (Auto) Baso % (Auto) Neut # (Auto) Lymph # (Auto) [place] # (Auto) Eos # (Auto) Baso # (Auto) Sodium Potassium Chloride Carbon Dioxide Anion Gap BUN Creatinine Est GFR ( Amer) Est GFR (Non-Af Amer) POC Glucose (mg/dL) 60 L 120 H Random Glucose Calcium Total Bilirubin AST ALT Alkaline Phosphatase Troponin I Total Protein Albumin Globulin Albumin/Globulin Ratio Lipase Assessment & Plan - Assessment and Plan (Free Text) Assessment: 67 yo Hisp Female s/p CCx many years ago, DM2, HTN presenting with abdominal pain. # Abd Pain: Likely due to acute pancreatitis with 2/3 criteria (abd pain and CT findings; lipase not 3x ULN). Suspect trigger related to sludge as is s/p CCx and does not drink EtOH. Reports good history of eating fatty meal prior to onset of symptoms. Also in ddx is gastritis, dyspepsia, but less likely. Reassuringly, pain is minimal at this time and patient requesting a diet. Plan: - Trial of liquid diet, but if painful would return to NPO - IVF with LR preferred in pancreatitis, can and D5 given reported hypoglycemia this AM - Pain control per primary - F/u RUQ US - Check IgG4 Pt seen and examined with Dr. Moise. Please see attestation for further recs/ changes. Thank you for the consult. Will sign off; please page if questions. <Bhavna Moise - Last Filed: 12/24/17 15:24> Meds - Medications Medications: Current Medications Albuterol (Ventolin Hfa 90 Mcg/Actuation (8 G)) 2 puff IH Q4H PRN PRN Reason: Shortness of Breath Albuterol Sulfate (Albuterol 0.083% Inhal Sharona (2.5 Mg/3 Ml) Ud) 2.5 mg IH Q6H PRN PRN Reason: Shortness of Breath Lactated Ringer's (Lactated Ringer's) 1,000 mls @ 150 mls/hr IV .Q6H40M [facility] Dextrose/Lactated Ringer's (Dextrose 5%/Lactated Ringer's) 1,000 mls @ 150 mls/ hr IV .Q6H40M [facility] Stop: 12/25/17 14:19 Insulin Detemir (Levemir) 50 units SC BID [facility] Insulin Human Lispro (Humalog) 0 units SC ACHS [facility] PRN Reason: Protocol Last Admin: 12/24/17 07:25 Dose: Not Given Lactobacillus Acidophilus (Bacid Acidophilus) 1 cap PO BID [facility] Last Admin: 12/24/17 08:41 Dose: 1 cap Losartan Potassium (Cozaar) 100 mg PO DAILY [facility] Montelukast Sodium (Singulair) 10 mg PO HS [facility] Morphine Sulfate (Morphine) 2 mg IVP Q4 PRN PRN Reason: Pain, severe (8-10) Pantoprazole Sodium (Protonix Ec Tab) 40 mg PO DAILY [facility] Last Admin: 12/24/17 08:41 Dose: 40 mg Zolpidem Tartrate (Ambien) 5 mg PO HS [facility] Results - Vital Signs Recent Vital Signs: Last Vital Signs Temp 97.9 F 12/24/17 08:09 Pulse 59 L 12/24/17 08:09 Resp 19 12/24/17 08:09 BP 119/71 12/24/17 08:09 Pulse Ox 97 12/24/17 08:09 - Labs Result Diagrams: 12/24/17 08:54 12/24/17 08:54 Labs: Laboratory Results - last 24 hr 12/23/17 12/23/17 12/24/17 20:20 20:20 01:36 WBC 12.2 H D RBC 3.86 Hgb 12.2 Hct 36.1 MCV 93.4 MCH 31.5 H MCHC 33.8 RDW 15.2 H Plt Count 200 MPV 9.3 Neut % (Auto) 58.3 Lymph % (Auto) 33.7 [place] % (Auto) 6.0 Eos % (Auto) 1.0 Baso % (Auto) 1.0 Neut # (Auto) 7.1 H Lymph # (Auto) 4.1 [place] # (Auto) 0.7 Eos # (Auto) 0.1 Baso # (Auto) 0.1 Sodium 142 Potassium 3.6 Chloride 109 H Carbon Dioxide 21 L Anion Gap 16 BUN 37 H Creatinine 1.1 Est GFR ( Amer) 60 Est GFR (Non-Af Amer) 49 POC Glucose (mg/dL) 94 Random Glucose 145 H Calcium 9.5 Phosphorus Magnesium Total Bilirubin 1.4 H AST 22 ALT 30 Alkaline Phosphatase 61 Troponin I < 0.0120 Total Protein 7.1 Albumin 3.9 Globulin 3.2 Albumin/Globulin Ratio 1.2 Triglycerides Cholesterol LDL Cholesterol Direct HDL Cholesterol Lipase 63 12/24/17 12/24/17 12/24/17 07:26 08:33 08:54 WBC RBC Hgb Hct MCV MCH MCHC RDW Plt Count MPV Neut % (Auto) Lymph % (Auto) [place] % (Auto) Eos % (Auto) Baso % (Auto) Neut # (Auto) Lymph # (Auto) [place] # (Auto) Eos # (Auto) Baso # (Auto) Sodium 139 Potassium 3.8 Chloride 109 H Carbon Dioxide 27 Anion Gap 7 L BUN 24 H Creatinine 0.9 Est GFR ( Amer) > 60 Est GFR (Non-Af Amer) > 60 POC Glucose (mg/dL) 60 L 120 H Random Glucose 121 H Calcium 8.3 L Phosphorus 3.7 Magnesium 1.7 Total Bilirubin 1.7 H AST 27 ALT 30 Alkaline Phosphatase 57 Troponin I Total Protein 5.5 L Albumin 2.9 L D Globulin 2.6 Albumin/Globulin Ratio 1.1 Triglycerides 83 D Cholesterol 155 LDL Cholesterol Direct 52 HDL Cholesterol 65 Lipase 24 12/24/17 12/24/17 12/24/17 08:54 10:39 14:05 WBC 9.8 RBC 3.41 L Hgb 11.1 L Hct 31.8 L MCV 93.4 MCH 32.5 H MCHC 34.8 RDW 15.4 H Plt Count 167 MPV Neut % (Auto) Lymph % (Auto) [place] % (Auto) Eos % (Auto) Baso % (Auto) Neut # (Auto) Lymph # (Auto) [place] # (Auto) Eos # (Auto) Baso # (Auto) Sodium Potassium Chloride Carbon Dioxide Anion Gap BUN Creatinine Est GFR ( Amer) Est GFR (Non-Af Amer) POC Glucose (mg/dL) 133 H 63 L Random Glucose Calcium Phosphorus Magnesium Total Bilirubin AST ALT Alkaline Phosphatase Troponin I Total Protein Albumin Globulin Albumin/Globulin Ratio Triglycerides Cholesterol LDL Cholesterol Direct HDL Cholesterol Lipase Attending/Attestation - Attestation I have personally seen and examined this patient.: Yes I have fully participated in the care of the patient.: Yes I have reviewed all pertinent clinical information: Yes Notes (Text): 12/24/17 15:23 Patient seen earlier today on rounds. This is a 67 yo Hisp Female s/p CCY 10 years ago, DM2, HTN presenting with abdominal pain with Ct showing pancreatic inflammation with normal lipase. Pain improved. Tolerating clear liquid diet. LFt normal. Sonogram pending. Can advance diet as tolerated. Send IgG4. Will sign off.
--- NOTE | 2017-12-24 08:46 | CARD ---
APPROVED REPORT Date of service: 12/23/2017 <Conclusion> Sinus bradycardia Otherwise normal ECG
[2017-12-24 09:10] LABS: HEMOGLOBIN 11.1 g/dL (12.0-16.0); MEAN CELL VOLUME 93.4 fl (81.0-99.0); MEAN CORPUSCULAR HEMOGLOBIN 32.5 pg (27.0-31.0); MEAN CORPUSCULAR HGB CONC 34.8 g/dL (33.0-37.0); RBC 3.41 Mil/uL (3.80-5.20); RED CELL DISTRIBUTION WIDTH 15.4 % (11.5-14.5); WHITE BLOOD COUNT 9.8 K/uL (4.8-10.8)
[2017-12-24 09:28] LABS: LDL CHOLESTEROL 52 mg/dL (0-129)
[2017-12-24 09:33] LABS: ALB/GLOB RATIO 1.1 (1.0-2.1); ALBUMIN 2.9 g/dL (3.5-5.0); ALT/SGPT 30 U/L (9-52); AST/SGOT 27 U/L (14-36); BLOOD UREA NITROGEN 24 mg/dl (7-17); CALCIUM 8.3 mg/dL (8.4-10.2); GFR NON-AFRICAN AMERICAN > 60; HDL CHOLESTEROL 65 MG/DL (30-70); LIPASE 24 U/L (23-300)
[2017-12-24] MEDS: Insulin Detemir 100 Units/ml Inj SC SCH ×2 (09:46→17:37)
--- NOTE | 2017-12-24 10:29 | CT ---
Date of service: 12/23/2017 PROCEDURE: CT Abdomen and Pelvis with contrast HISTORY: episgastric pain COMPARISON: Noncontrast abdomen pelvis CT 12/25/2011. TECHNIQUE: Following the intravenous administration of iodinated contrast material, a CT examination of the abdomen and pelvis performed from the domes of the diaphragms to the symphysis pubis with reformatted datasets provided in axial, sagittal and coronal planes. Oral contrast was not administered as per referring physician request. Coronal and sagittal reformats were generated. Contrast dose: Visipaque 320, 95 cc Radiation dose: Total exam DLP = 824.62 mGy-cm. This CT exam was performed using one or more of the following dose reduction techniques: Automated exposure control, adjustment of the mA and/or kV according to patient size, and/or use of iterative reconstruction technique. FINDINGS: LOWER THORAX: Trace patchy density seen scattered at the bilateral lower lobes which are nonspecific and anomaly ground-glass opacity. No pleural or pericardial effusion. LIVER: Unremarkable. No gross lesion or ductal dilatation. GALLBLADDER AND BILE DUCTS: Prior cholecystectomy. PANCREAS: The pancreas appears markedly atrophic however there is a lucency seen in the posterior margin of the head with questionable local fatty reaction. This lucency is poorly defined. Consider follow-up MRI without contrast for greater characterization of this area. The remainder the pancreas is nonfocal. Common bile duct appears upper limits normal caliber without radiodense choledocholithiasis. SPLEEN: Unremarkable. ADRENALS: Unremarkable. No mass. KIDNEYS AND URETERS: There is an indeterminate lucency at the upper midpole right kidney anteriorly measuring 1 cm greatest dimension and 28 Hounsfield units. Follow-up MRI without contrast may be useful if there is no contraindication. This is a small lesion difficult to evaluate. Simple cysts under 1 cm size is seen at the midpole left kidney laterally and an additional cyst is seen posteriorly, likely slightly complex but stable compared to 12/25/[address] No obstructive uropathy bilaterally. VASCULATURE: Unremarkable. No aortic aneurysm. BOWEL: Unremarkable. No obstruction. No gross mural thickening. APPENDIX: Not identified. No CT evidence of appendicitis. PERITONEUM: Unremarkable. No free fluid. No free air. LYMPH NODES: Unremarkable. No enlarged lymph nodes. BLADDER: Unremarkable. REPRODUCTIVE: Unremarkable. BONES: No acute fracture. OTHER FINDINGS: None. IMPRESSION: 1. Ill defined lucency at the head of the pancreas with questionable local fatty reaction. This does not appear to be displacing blood vessels and focal fatty infiltration is a possibility however mass is not excluded follow-up MRI is recommended with and without contrast. Pancreas is diffusely atrophic. There is discordant from V rad preliminary report 12/23/2017. 2. 1 cm lucency midpole right kidney too small to characterize accurately pause representing a complex cyst or a soft tissue lesion. Ultrasound or MRI advised for additional characterization. Interval small cyst midpole left kidney. Stable small complex cyst midpole left kidney.
[2017-12-24] MEDS: Dextrose 5%/Lactated Ringer's 1,000 ML IV SCH ×2 (14:34→21:47)
--- NOTE | 2017-12-24 16:41 | US ---
Date of service: 12/24/2017 HISTORY: Abdominal pain COMPARISON: None. TECHNIQUE: Sonographic evaluation of the abdomen. FINDINGS: LIVER: Measures 13.2 cm. Hepatopedal blood flow. Fatty infiltration manifest ultrasonographically as increased echogenicity of the liver parenchyma. No mass. No intrahepatic bile duct dilatation. GALLBLADDER: Status post cholecystectomy. No abnormality is seen in the gallbladder fossa. COMMON BILE DUCT: Measures 8.3 mm. No stones. No dilatation. PANCREAS: Unremarkable as visualized. No mass. No ductal dilatation. RIGHT KIDNEY: Measures 4.6 x 8.4cm. Normal echogenicity. No calculus, mass, or hydronephrosis. Midpole cyst 10 mm. LEFT KIDNEY: Measures 4 x 10.1cm. Normal echogenicity. No calculus, mass, or hydronephrosis. SPLEEN: Normal in size and contour. No mass. AORTA: No aneurysmal dilatation. IVC: Unremarkable. OTHER FINDINGS: None. IMPRESSION: Unremarkable abdominal sonogram.
[2017-12-24] MEDS: Albuterol 0.083% Inhal Sol (2.5 mg/3 mL) UD IH PRN (21:58)
[2017-12-25] MEDS: Lactated Ringer's 1,000 ML IV SCH ×2 (03:00→10:49)
[2017-12-25] MEDS: Dextrose 5%/Lactated Ringer's 1,000 ML IV SCH ×2 (05:23→10:47)
[2017-12-25] MEDS: Insulin Lispro (humaLOG) 100 Units/ml Inj SC SCH ×4 (07:48→21:38)
[2017-12-25] MEDS: Insulin Detemir 100 Units/ml Inj SC SCH ×2 (09:49→18:03)
[2017-12-25] MEDS: Pantoprazole 40 mg EC Tab PO SCH (10:45)
[2017-12-25] MEDS: Lactobacillus Acidophilus 500 MU Cap PO SCH ×2 (10:57→16:40)
[2017-12-25] MEDS: Albuterol 0.083% Inhal Sol (2.5 mg/3 mL) UD IH PRN (19:58)
--- NOTE | 2017-12-25 21:49 | HP ---
LATE ENTRY FOR HISTORY AND PHYSICAL HISTORY OF PRESENT ILLNESS: This is a 67-year-old female with history of multiple medical problems, status post cholecystectomy main years ago, presented to emergency room with symptoms of upper abdominal pain that started on the day of admission. Pain was severe to bring the patient to emergency room. The patient was evaluated in the emergency room. She had a CT scan done that showed some abnormality in the pancreas suggestive of pancreatitis. The patient's lipase was not elevated but due to the abdominal pain as well as the CAT scan finding, the patient was admitted to medical floor, kept n.p.o., started on aggressive hydration. GI consultation was called. Other review of system is negative. ALLERGIES: NO KNOWN ALLERGIES. MEDICATIONS: Reviewed as per MAR and ordered. PAST MEDICAL HISTORY: Type 2 diabetes mellitus, hypercholesteremia, hypertension, status post cholecystectomy, bronchial asthma. SOCIAL HISTORY: Denies smoking, EtOH or substance abuse. FAMILY HISTORY: Noncontributory. PHYSICAL EXAMINATION: GENERAL: The patient was in bed, not in any cardiopulmonary distress. VITAL SIGNS: With a blood pressure of 151/71, temperature 99.2, respiratory rate 18, and pulse 54. HEENT: Pupils are equal and reactive to light. Normal-appearing mucosa of the conjunctivae, oropharynx, and nasal membrane mucosa. NECK: Supple. No JVD. No carotid bruit. No lymph node. No thyromegaly. CHEST AND LUNGS: Bilateral symmetrical expansion. Good air exchange. No rales. No rhonchi. CARDIOVASCULAR SYSTEM: PMI not localized. S1, S2. No additional sounds. ABDOMEN: Normoactive bowel sounds. Slight tenderness on the epigastric area. No organomegaly. No masses. EXTREMITIES: No cyanosis, no clubbing, no edema. CENTRAL NERVOUS SYSTEM: Alert, awake, oriented x2. No neurological deficit could be appreciated. ASSESSMENT: Acute pancreatitis criteria of the CAT scan finding as abdominal pain, type 2 diabetes mellitus, bronchial asthma, hypertension. PLAN: Continue IV fluid. Abdominal ultrasound. Follow up with GI recommendations. Lillie Champion MD
[2017-12-26] MEDS: Albuterol 0.083% Inhal Sol (2.5 mg/3 mL) UD IH PRN ×3 (02:28→19:18)
[2017-12-26] MEDS: Insulin Lispro (humaLOG) 100 Units/ml Inj SC SCH ×4 (08:34→21:17)
[2017-12-26] MEDS: Pantoprazole 40 mg EC Tab PO SCH (09:36)
[2017-12-26] MEDS: Insulin Detemir 100 Units/ml Inj SC SCH ×2 (09:50→19:10)
[2017-12-26] MEDS: Lactobacillus Acidophilus 500 MU Cap PO SCH ×2 (10:03→19:09)
[2017-12-27] MEDS: Albuterol 0.083% Inhal Sol (2.5 mg/3 mL) UD IH PRN (01:11)
[2017-12-27] MEDS: Insulin Lispro (humaLOG) 100 Units/ml Inj SC SCH ×3 (07:30→15:59)
[2017-12-27 07:51] VITALS: BP 133/69; PULSE 63; RESP 19; TEMP 98.4; O2SAT 97
[2017-12-27] MEDS ORDERED: Gadodiamide 287 MG/ML VIAL (15ML) IV ONE (08:00)
[2017-12-27] MEDS ORDERED: Sodium Chloride 0.9% 50 ML IV ONE (08:00)
--- NOTE | 2017-12-27 08:16 | PN ---
DATE: 12/25/2017 DAILY PROGRESS NOTE SUBJECTIVE: The patient is seen today, 12/25/2017. Her abdominal pain is less. The patient feels hungry. She wants to eat to advanced diet. PHYSICAL EXAMINATION: VITAL SIGNS: Blood pressure 119/82, temperature 98.4, respiratory rate 18, and pulse 69. HEENT: Pupils equal, reactive to light. Normal-appearing mucosa of the conjunctivae, oropharynx, and nasal membrane mucosa. NECK: Supple. No JVD. No carotid bruit. No lymph node. No thyromegaly. CHEST AND LUNGS: Bilateral symmetrical expansion. Good air exchange. No rales. No rhonchi. CARDIOVASCULAR SYSTEM: PMI not localized. S1, S2. No additional sounds. ABDOMEN: Normoactive bowel sounds. No tenderness. No organomegaly. No masses. EXTREMITIES: No cyanosis, no clubbing, no edema. CENTRAL NERVOUS SYSTEM: Alert, awake, oriented x3. No neurological deficit could be appreciated. ASSESSMENT: Pancreatitis which is resolving. Abnormal findings in pancreatic head and body. PLAN: We will do MRI of the pancreas with and without contrast. Advance diet to low fat diet. Continue Accu-Cheks with insulin coverage. Discussed the patient's condition with her family at the bedside. We will follow GI recommendations. Lillie Champion MD
[2017-12-27] MEDS: Lactobacillus Acidophilus 500 MU Cap PO SCH ×2 (09:48→15:59)
[2017-12-27] MEDS: Insulin Detemir 100 Units/ml Inj SC SCH ×2 (09:51→16:00)
[2017-12-27] MEDS: Pantoprazole 40 mg EC Tab PO SCH (09:54)
--- NOTE | 2017-12-27 14:43 | MRI ---
Date of service: 12/27/2017 PROCEDURE: MRI Abdomen with and without contrast HISTORY: Medial pancreatic head lucency identified in initial CT abdomen and pelvis 12/23/2017 poorly characterized in that examination. COMPARISON: As above. TECHNIQUE: Multisequence, multiplanar MR images of the abdomen with and without gadolinium contrast enhancement. Omniscan 18 cc was delivered intravenously for contrast. FINDINGS: LIVER: Diffuse fatty infiltration reiterated without focal mass or intrahepatic biliary dilatation. GALLBLADDER: Unremarkable. SPLEEN: Unremarkable. PANCREAS: There is a solid enhancing mass identified. However, there are multiple small outpouchings and appear to be related to the main pancreatic duct in the body and tail the pancreas numbering at least 5-6 in varying in size from 2 up to 6 mm. There 1 or 2 at the head of the pancreas with the largest measuring up to 6.8 mm greatest size potentially related to the main duct as well though this could represent a branch duct lesion. Consideration is for intraductal papillary mucinous neoplasms given it all appear to be associated with pancreatic ducts rather than this associated from them. Appears to be main and accessory pancreatic ducts in this patient with the vast majority of lesions associated with the main pancreatic duct. ADRENALS: Unremarkable. KIDNEYS: No solid mass bilaterally. No obstructive uropathy. Small cysts identified upper pole right kidney as well as midpole left kidney laterally and intrarenal midpole left kidney. Small cyst seen at the lower pole right kidney intrarenal as well. There are additional small likely tiny cysts in the periphery of the lower pole left kidney. No obstructive uropathy bilaterally. AORTA: No aneurysm. ASCITES: None. PERITONEUM: Unremarkable. LYMPH NODES: Unremarkable. OTHER FINDINGS: None. IMPRESSION: Multiple small sub cm cystic foci communicate apparently with the main pancreatic duct in this patient with both main and accessory pancreatic ducts and therefore suspicious for IPMNs. Further evaluation may be considered by a endoscopic ultrasound or is otherwise clinically indicated ; GI consultation recommended. Hepatic steatosis. Multiple benign renal cyst identified bilaterally.
--- NOTE | 2017-12-27 15:23 | CP.PCM.PCO ---
Assessment/Plan - Assessment/Plan Assessment (Free Text): Pt stable, tolerating diet. DIMITRIOS Castellano reviewed MRI report with GI, Dr. Moise and Dr. Champion. Patient cleared to be discharged home by both MDs. Patient will f /u outpatient for endoscopic ultrasound
--- NOTE | 2017-12-28 00:06 | PN ---
DATE: 12/26/2017 LATE ENTRY FOR PROGRESS NOTE SUBJECTIVE: The patient was seen on 12/26/2017. She was having no abdominal pain at the time of this examination. The patient was tolerating advancing the diet. The patient was for MRI of the pancreas. PHYSICAL EXAMINATION: VITAL SIGNS: Blood pressure was 125/65, temperature 98.2, respiratory rate 20, and pulse 76. HEENT: Pupils are equal and reactive to light. Normal-appearing mucosa of the conjunctivae, oropharynx, and nasal membrane mucosa. NECK: Supple. No JVD. No carotid bruits. No lymph nodes. No thyromegaly. CHEST AND LUNGS: Bilateral symmetrical expansion. Good air exchange. No rales. No rhonchi. CARDIOVASCULAR SYSTEM: PMI not localized. S1 and S2. No additional sounds. ABDOMEN: Normoactive bowel sounds. No tenderness. No organomegaly. No masses. EXTREMITIES: No cyanosis. No clubbing. No edema. CENTRAL NERVOUS SYSTEM: Alert, awake, and oriented x2. No neurological deficit could be appreciated. ASSESSMENT: 1. Resolved pancreatitis. 2. History of bronchial asthma, type 2 diabetes mellitus and hypercholesterolemia. PLAN: Follow up the MRI results and follow the GI recommendations. Lillie Champion MD
--- NOTE | 2017-12-28 04:57 | DS ---
REASON FOR ADMISSION: This is a 67-year-old female with a history of multiple medical problems who was admitted for abdominal pain, thought to be due to pancreatitis. COURSE OF HOSPITALIZATION: The patient was admitted to medical floor. She was kept n.p.o. and she was given IV fluids. The patient had a GI consult done by Dr. Moise. The patient's symptoms resolved. Due to abnormal findings in the CAT scan and MRI of the pancreas was done that showed multiple small subcentimeter cystic foci communicate apparently with the main pancreatic duct in the presence of main and accessory pancreatic ducts and therefore suspicious for IPMNs. Further evaluation may be considered by endoscopic ultrasound. The patient was discharged completely asymptomatic, to be followed by outpatient GI for endoscopic ultrasound. FINAL DIAGNOSES: Pancreatitis, multiple subcentimeter pancreatic lesions that needs further followup; type 2 diabetes mellitus; bronchial asthma; hypercholesterolemia. The patient is the primary care physician of Dr. Farrukh Rios who was informed about the MRI results and the need for further endoscopic ultrasound as per GI recommendations. Lillie Champion MD
== END 2017-12-27 16:31 | disposition home or self-care (01) | DRG 440 ==
LOC: H.ER 18:29 → H.ERHOLD 23:50 → H.MEDSURG1 12-24 01:56
PROVIDERS: ADMIT Internal Medicine; ATTEND Internal Medicine
PROC: 3E0F7GC Introduction of Other Therapeutic Substance into Respiratory Tract, Via Natural or Artificial Opening (ICD-10-PCS; principal; 2017-12-24)
DX: K85.90 Acute pancreatitis without necrosis or infection, unspecified (principal); E10.9 Type 1 diabetes mellitus without complications; Z79.4 Long term (current) use of insulin; Z90.49 Acquired absence of other specified parts of digestive tract; Z79.84 Long term (current) use of oral hypoglycemic drugs; E78.00 Pure hypercholesterolemia, unspecified; G89.29 Other chronic pain; I10 Essential (primary) hypertension; J44.9 Chronic obstructive pulmonary disease, unspecified; K86.9 Disease of pancreas, unspecified

== ENCOUNTER 2018-04-30 19:46 | Emergency (ER) | payer MEDICARE ==
[2018-04-30 19:46] VITALS: BMI 35.4
--- NOTE | 2018-04-30 20:15 | ED PDOC ---
Upper Extremity Pain/Injury Time Seen by Provider: 04/30/18 20:13 Chief Complaint (Nursing): Upper Extremity Problem/Injury Chief Complaint (Provider): Upper Extremity Problem/Injury History Per: Patient History/Exam Limitations: no limitations Onset/Duration Of Symptoms: Hrs Current Symptoms Are (Timing): Still Present Additional Complaint(s): Patient is a 67 y/o female with a PMHx of HTN, hypercholesterolemia, asthma, back problems, and DM who presents to the ED for evaluation right shoulder pain onset earlier today. Patient was changing her adult handicap son's diaper when she hurt her arm. Patient describes the severity of the pain as a 10/10. Patient claims the pain is radiating to the right side of her neck and right arm. Patient has been applying ice and taking Percocet, which she received as medication for a hernia and broken ligament, with no relief. Patient last took Percocet at 14:00. PCP: Dr. Heriberto Roland Past Medical History Reviewed: Historical Data, Nursing Documentation, Vital Signs Vital Signs: Last Vital Signs Temp 97.5 F L 04/30/18 19:55 Pulse 64 04/30/18 19:55 Resp 18 04/30/18 19:55 BP 175/96 H 04/30/18 19:55 Pulse Ox 98 04/30/18 19:55 - Medical History PMH: Asthma, Back Problems, Diabetes, HTN, Hypercholesterolemia Denies: CVA, HIV, Chronic Kidney Disease - Surgical History Surgical History: Cholecystectomy Denies: Pacemaker, - Family History Family History: States: Unknown Family Hx - Living Arrangements Living Arrangements: With Family - Immunization History Hx Tetanus Toxoid Vaccination: No Hx Influenza Vaccination: No Hx Pneumococcal Vaccination: No - Home Medications Home Medications: Ambulatory Orders Medication Instructions Recorded Albuterol 0.083% [Albuterol 0.083% 3 ml IH Q6H PRN 12/22/16 Inhal Sharona (2.5 mg/3 ml) UD] Albuterol HFA [Ventolin HFA 90 2 puff IH Q4H PRN 12/22/16 mcg/actuation (8 g)] Insulin Aspart, Recombinant 10 unit SC AC 12/22/16 [Novolog] Insulin Glargine, Recombina 50 unit SC BID 12/22/16 [Lantus] Losartan [Cozaar] 100 mg PO DAILY 12/22/16 MetFORMIN [glucoPHAGE] 1,000 mg PO BID 12/22/16 Montelukast [Singulair] 10 mg PO HS 12/22/16 Omeprazole 20 mg PO DAILY 12/22/16 Oxycodone HCl/Acetaminophen 1 tab PO Q6H PRN 12/22/16 [Percocet 10-325 mg Tablet] Simvastatin 10 mg PO DAILY 12/22/16 Zolpidem [Ambien] 10 mg PO HS 12/22/16 Lactobacillus Acidophilus [Bacid 1 cap PO BID #14 cap 12/25/16 Acidophilus] Cyclobenzaprine [Flexeril] 10 mg PO TID #27 tab 04/30/18 Diclofenac Potassium 50 mg PO BID #20 tablet 04/30/18 - Allergies Allergies/Adverse Reactions: Allergies Allergy/AdvReac Type Severity Reaction Status Date / Time No Known Allergies Allergy Verified 10/23/17 10:02 Review of Systems ROS Statement: Except As Marked, All Systems Reviewed And Found Negative Constitutional: Positive for: Weakness (right upper) Musculoskeletal: Positive for: Neck Pain (right sided), Shoulder Pain (right), Arm Pain (right) Physical Exam - Reviewed Nursing Documentation Reviewed: Yes Vital Signs Reviewed: Yes - Physical Exam Appears: Positive for: No Acute Distress Head Exam: Positive for: ATRAUMATIC, NORMAL INSPECTION, NORMOCEPHALIC Skin: Positive for: Normal Color, Warm, DRY Eye Exam: Positive for: EOMI, Normal appearance, PERRL Neck: Positive for: Normal, Painless ROM, Supple Cardiovascular/Chest: Positive for: Regular Rate, Rhythm. Negative for: Murmur Respiratory: Positive for: Normal Breath Sounds (clear auscultation bilaterally). Negative for: Respiratory Distress Extremity: Positive for: Normal ROM (About Shoulder: forward elevation limited bilaterally to 70 degrees; 90 degrees bilateral abduction; internal rotation limited to 15 degrees on right shoulder; external rotation limited to 25 degrees on right shoulder), Other (Positive goss test on right arm; Negative neers and empty can sign; Radicular pain from [id number]) Neurologic/Psych: Positive for: Alert, Oriented, Mood/Affect (appropriate). Negative for: Motor/Sensory Deficits - ECG O2 Sat by Pulse Oximetry: 98 (RA) Pulse Ox Interpretation: Normal Medical Decision Making Medical Decision Making: Time: 2019 Impression: r/o calcific tendonitis Plan: Shoulder Right [Rad] Time: 2039 Wet Read: No noted calcification. Acromiohumeral distance measures 9 mm, which is within normal limits. Joint spacing is even. No noted DJD. Normal x-ray. Scribe Attestation: Documented by Devaughn Restrepo, acting as a scribe for GEMMA Hughes. Provider Scribe Attestation: All medical record entries made by the Scribe were at my direction and personally dictated by me. I have reviewed the chart and agree that the record accurately reflects my personal performance of the history, physical exam, medical decision making, and the department course for this patient. I have also personally directed, reviewed, and agree with the discharge instructions and disposition. Disposition - Clinical Impression Clinical Impression: Shoulder pain - Patient ED Disposition Is Patient to be Admitted: No Doctor Will See Patient In The: Office Counseled Patient/Family Regarding: Diagnosis, Need For Followup, Rx Given - Disposition Referrals: Farrukh Rios MD [Staff Provider] - [facility] [Outside] Bryan Richey MD [Staff Provider] - Disposition: Routine/Home Disposition Time: 21:06 Condition: STABLE Additional Instructions: take medications wear slling rest shoulder follow up with Dr Rios and the Orthopedic physician to whom you were referred Prescriptions: Cyclobenzaprine [Flexeril] 10 mg PO TID #27 tab Diclofenac Potassium 50 mg PO BID #20 tablet Instructions: Shoulder Pain (DC) Forms: Geron (Guatemalan), Geron (Welsh) Print Language: ROMANIAN
[2018-04-30 21:49] VITALS: BP 164/70; PULSE 68; RESP 16; TEMP 97.8; O2SAT 100
--- NOTE | 2018-05-01 10:10 | RAD ---
Date of service: 04/30/2018 PROCEDURE: Radiographs of the Right Shoulder HISTORY: r/o calcific tendonosis COMPARISON: No prior. FINDINGS: BONES: No acute fracture. JOINTS: Mild acromioclavicular joint spurring. SOFT TISSUES: Infraspinatus calcific tendonitis. OTHER FINDINGS: None. IMPRESSION: No acute fracture. Infraspinatus calcific tendinitis.
== END 2018-04-30 21:48 | disposition home or self-care (01) ==
LOC: H.ER 19:46
DX: M25.511 Pain in right shoulder (principal); E11.9 Type 2 diabetes mellitus without complications; Z79.4 Long term (current) use of insulin